=== PATIENT | male | born 1975 | race Caucasian/White ===

== ENCOUNTER 2018-12-31 10:35 | Emergency (ER) | payer OTHER ==
[~2018-12-31] VITALS: Ht 190.5 cm; Wt 127.0 kg
[2018-12-31] MEDS ORDERED: FLEXERIL PO (10:43)
[2018-12-31] MEDS ORDERED: RAYOS5 MG PO (10:43)
[2018-12-31] MEDS ORDERED: NORCO 5-325 TA1 EAC1 PO (11:22)
[2018-12-31 12:03] VITALS: BP 145/76
== END 2018-12-31 12:04 | disposition home or self-care (01) ==
LOC: M.ERS 10:35
DX: M54.42 Lumbago with sciatica, left side (principal); Z90.49 Acquired absence of other specified parts of digestive tract